=== PATIENT | male | born 1990 | race Two or more races ===

== ENCOUNTER → 2017-06-23 | Outpatient (CLI) | payer OTHER ==
[2017-06-23 14:19] LABS: VANC TR 1.8 mcg/mL (10.0-20.0)
== END | disposition home or self-care (01) ==
LOC: SPEC 13:44 → EEVIPCON 13:44
PROVIDERS: ATTEND Family Medicine Adult Medicine
DX: L03.119 Cellulitis of unspecified part of limb (principal)
CPT/HCPCS: 36415; 80202